=== PATIENT | female | born 1980 | race Caucasian/White ===

== ENCOUNTER 2017-03-05 10:56 | Emergency (ER) | payer SELFPAY ==
[~2017-03-05] VITALS: Ht 165.1 cm; Wt 122.7 kg
[2017-03-05 11:01] VITALS: TEMP 36.7; Ht 165.1 cm; Wt 122.7 kg
[2017-03-05] MEDS ORDERED: CHLO-244 (11:18)
[2017-03-05] MEDS ORDERED: BIOT1CAP8 (11:18)
--- NOTE | 2017-03-05 12:04 | DIAGNOSTIC IMAGING REPORT ---
MANDIBLE MIN 4 VIEWS ROUTINE CLINICAL HISTORY: 36 years-old Female presenting with L sided jaw pain; Hx tmj; "feels locked". TECHNIQUE: 4 views mandible were obtained. COMPARISON: None. FINDINGS: No radiographic evidence of fracture or malalignment. The right mandibular condyle remains within the temporomandibular fossae. However, the left mandibular condyle is slightly anteriorly subluxed relative to the right. Visualized portion of the cervical spine normal. Paranasal sinuses and mastoid air cells grossly normal. IMPRESSION: Slight anterior subluxation of the left mandibular condyle relative to the right. Electronically signed by: Alejo Steven M.D. 03/05/2017 12:03 PM Dictated Date/Time: 03/05/2017 11:59 AM
[2017-03-05] MEDS ORDERED: TRAM-10 PO ×2 (12:30→12:51)
[2017-03-05] MEDS ORDERED: PRED20TA2 PO ×2 (12:30→12:51)
[2017-03-05 12:55] VITALS: BP 138/89; PULSE 80; O2SAT 94
--- NOTE | 2017-03-05 20:51 | EMERGENCY ROOM VISIT NOTE ---
ED Visit Note First contact with patient: 11:30 Chief Complaint: I think the left side of my jaw is locked. History of Present Illness: Ms. Thompson is a 36-year-old white female who ambulates into the ED complaining of left-sided mandibular pain. Historically patient reports she has a history of TMJ from grinding her teeth at night. Patient reports she woke 2 days ago from sleep and was having left-sided jaw pain. Since that time the pain has been constant slowly increasing in intensity. She describes her discomfort as. She rates her discomfort 8/10. Her pain is nonradiating. Her pain worsens with chewing and opening her mouth. She has not identified any alleviating factors related to the pain. She reports she's been using ibuprofen without relief of her discomfort. She denies any associated symptoms including fevers, chills, sweats, recent trauma, headache, dizziness, hearing changes, difficulty speaking, difficult swallowing , sore throat, painful talking, drooling, ear drainage, neck pain/stiffness. Review of Systems: As noted above in history of present illness. 5 body systems were reviewed and found to be negative as noted above. Past Medical History: Irritable bowel syndrome, anxiety. Current Medications: Biotin, chlorpheniramine maleate. Allergies to Medications: Penicillin. Social History: Patient is not employed; she feels safe in her home environment ; she denies tobacco and alcohol use. Physical Examination: Vital Signs: Date Time Temp Pulse Resp B/P (MAP) Pulse Ox O2 Delivery O2 Flow Rate FiO2 03/05/17 12:55 80 16 138/89 94 03/05/17 11:01 36.7 82 20 162/92 95 Room Air GENERAL: 36-year-old female in mild to moderate distress due to pain, nontoxic- appearing, afebrile and hemodynamically stable. NEUROLOGICAL: Awake, alert and oriented to person, place and time. Answering questions appropriately and following commands. Normal gait. Good hand eye coordination. No focal motor sensory deficits. SKIN: Warm, dry and pink. No soft tissue eruptions or trauma noted. HEENT: Atraumatic and normocephalic. No erythema or tenderness over the frontal or maxillary sinuses. External ears are nontender. Left auditory canal is impacted with cerumen and the right auditory canal is minimally full cerumen. I was not able to visualize the left tympanic membrane but the right tympanic membrane appeared normal under was no erythema or bulging. Mild tenderness over the left TMJ with some fullness of the subcutaneous tissues but no signs of erythema consistent with infection. No preauricular or postauricular lymphadenopathy. No tenderness or swelling over the mastoid processes bilaterally. PERRLA. EOMI without nystagmus. Sclera white and conjunctiva pink without drainage. No drainage from naris. No malocclusion. Oral cavity moist and pink. No obvious dental disease present area. Pharynx is nonerythematous or edematous. Speech normal. No difficulty speaking. No lymphadenopathy. Trachea midline. No jugular venous distention. BACK: No tenderness over the bony spine. No CVA tenderness. THORAX: Lungs sounds are clear to auscultation and equal bilaterally with symmetrical chest wall. No wheezing, rales or rhonchi. ED Course: Patient is assessed as noted above. Patient's medication list was reviewed. Mandible x-ray: Was reviewed by myself and read by the radiologist and shows slight anterior subluxation of the left mandibular condyle related to the right. Patient's case was reviewed with Dr. Morfin. Patient's case was consulted with Dr. Meadows, oral/plastic surgery; he recommended office follow-up for definitive care and treatment. Patient was educated about today's findings and instructed on her treatment plan ; she verbalized understanding and agreement with this plan. Clinical Impression: Left TMJ subluxation. Disposition: A shunt discharged home in stable condition; prior to departure she was reassessed and subjectively reported she was feeling better and rated her discomfort 6/10. Plan: Patient was prescribed Ultram 50-100 mg every 6 hours as needed for pain and patient was encouraged to alternate with ibuprofen. Patient was prescribed prednisone 60 mg once a day for 5 days. Other comfort measures including ice and a liquid/mechanical soft diet was recommended to the patient. Patient is encouraged to follow-up with specialist for definitive care and treatment. Patient is encouraged return ED for worsening pain, inability to open the mouth , facial swelling, fevers or any new/concerning symptoms.
== END 2017-03-05 13:02 | disposition home or self-care (01) ==
LOC: C.EDB 10:59 → C.EDD 13:02
DX: S03.02XA Dislocation of jaw, left side, initial encounter (principal); X58.XXXA Exposure to other specified factors, initial encounter; K58.9 Irritable bowel syndrome, unspecified; F41.9 Anxiety disorder, unspecified; Z79.899 Other long term (current) drug therapy